=== PATIENT | male | born 1985 ===

== ENCOUNTER 2017-07-07 14:12 | Emergency (ER) | payer OTHER ==
[~2017-07-07] VITALS: Ht 167.6 cm; Wt 78.9 kg
[2017-07-07] MEDS ORDERED: LORazepam 2 MG/ML, 1ML ONE ×4 (14:37→17:08)
[2017-07-07] MEDS: LORazepam 2 MG/ML, 1ML IVPush PRN ×4 (14:42→17:10)
[2017-07-07] MEDS ORDERED: SODIUM CHLORIDE FLUSH 10ML SYR IVF ONE (15:00)
[2017-07-07] MEDS ORDERED: PLEASE ENTER HEIGHT AND WEIGHT MC SCH (15:00)
[2017-07-07 15:22] LABS: BASOPHILS # (AUTO) 0.01 x10^3/uL (0-0.1); BASOPHILS % (AUTO) 0 % (0-1); EOSINOPHILS # (AUTO) 0.02 x10^3/uL (0-0.4); EOSINOPHILS % (AUTO) 0 % (1-7); LYMPHOCYTES # (AUTO) 0.38 x10^3/uL (1-3.4); LYMPHOCYTES % (AUTO) 4 % (22-44); MD NO; MEAN CORPUSCULAR HEMOGLOBIN 35.3 pg (27.5-34.5); MEAN CORPUSCULAR HGB CONC 33.9 g/dL (33.2-36.2); MEAN CORPUSCULAR VOLUME 104.2 fL (81-97); MEAN PLATELET VOLUME 6.4 fL (7.4-10.4); MONOCYTES % (AUTO) 5 % (2-9); NEUTROPHILS # (AUTO) 9.16 x10^3/uL (1.8-6.8); NEUTROPHILS % (AUTO) 91 % (42-75); PLATELET COUNT 143 x10^3/uL (130-400); RED BLOOD COUNT 3.19 x10^6/uL (4.38-5.82); RED CELL DISTRIBUTION WIDTH 15.3 % (9.4-14.8)
[2017-07-07 15:31] LABS: ALANINE AMINOTRANSFERASE 38 U/L (12-78); ALBUMIN 2.8 g/dL (3.4-5.0); ANION GAP 9 mmol/L (5-15); CALCIUM 8.1 mg/dL (8.5-10.1); CHLORIDE 97 mmol/L (98-107)
[2017-07-07 15:34] LABS: ALKALINE PHOSPHATASE 153 U/L (45-117); BILIRUBIN,TOTAL 9.6 mg/dL (0.2-1.0); CREATININE 0.77 mg/dL (0.7-1.3); TOTAL PROTEIN 8.1 g/dL (6.4-8.2)
[2017-07-07 16:02] LABS: INTERNATIONAL NORMALIZED RATIO 1.75 (0.93-1.1)
[2017-07-07] MEDS: PLEASE ENTER ALLERGIES MC SCH ×2 (16:06→16:35)
[2017-07-07 16:44] VITALS: BP 128/80
== END 2017-07-07 18:18 | disposition home or self-care (01) ==
LOC: ED 15:34
DX: R56.9 Unspecified convulsions (principal)
CPT/HCPCS: 36415; 70450; 80053; 85025; 85610; 85730; 96374; 96376; 99285; J2060

== ENCOUNTER 2017-07-17 22:59 | Inpatient (IN) | payer OTHER ==
[~2017-07-17] VITALS: Ht 170.2 cm; Wt 68.4 kg
[2017-07-17] MEDS: ESOMEPRAZOLE SODIUM 80 MG in SODIUM CHLORIDE 0.9% 100 ML IV SCH (23:45)
[2017-07-17] MEDS ORDERED: OCTREOTIDE 500 MCG in SODIUM CHLORIDE 0.9% 249 ML IV PRN (23:45)
[2017-07-17] MEDS ORDERED: PANTOPRAZOLE 80 MG in SODIUM CHLORIDE 0.9% 50 ML IVPB ONE (23:45)
[2017-07-18] VITALS (27 sets, daily range): BP systolic 96–122; BP diastolic 37–90
[2017-07-18] MEDS ORDERED: SODIUM CHLORIDE FLUSH 10ML SYR IVF ONE
[2017-07-18] MEDS ORDERED: SODIUM CHLORIDE 0.9% 1,000ML IVBOLUS ONE
[2017-07-18] MEDS ORDERED: OCTREOTIDE 100MCG/ML, 1ML (0.1MG/ML) IV ONE
[2017-07-18 00:14] LABS: INTERNATIONAL NORMALIZED RATIO 2.01 (0.93-1.1); PROTHROMBIN TIME 20.6 Seconds (9.6-11.5)
[2017-07-18 00:16] LABS: ALANINE AMINOTRANSFERASE 17 U/L (12-78); ALBUMIN 1.8 g/dL (3.4-5.0); ANION GAP 7 mmol/L (5-15); CALCIUM 7.2 mg/dL (8.5-10.1); CHLORIDE 104 mmol/L (98-107); CREATININE 0.97 mg/dL (0.7-1.3); MEAN CORPUSCULAR HEMOGLOBIN 36.9 pg (27.5-34.5); MEAN CORPUSCULAR HGB CONC 34.4 g/dL (33.2-36.2); MEAN CORPUSCULAR VOLUME 107.2 fL (81-97); MEAN PLATELET VOLUME 6.5 fL (7.4-10.4); PLATELET COUNT 157 x10^3/uL (130-400); RED BLOOD COUNT 1.23 x10^6/uL (4.38-5.82); RED CELL DISTRIBUTION WIDTH 16.8 % (9.4-14.8)
[2017-07-18 00:18] LABS: ALKALINE PHOSPHATASE 157 U/L (45-117); BILIRUBIN,TOTAL 9.3 mg/dL (0.2-1.0); TOTAL PROTEIN 5.4 g/dL (6.4-8.2)
[2017-07-18] MEDS ORDERED: ONDANSETRON 2MG/ML, 2ML ONE (00:31)
[2017-07-18 00:41] LABS: MD YES
[2017-07-18 00:45] LABS: ANISOCYTOSIS 1+; BAND#(MANUAL) 1.54 x10^3/uL; BANDS%(MANUAL) 8 % (0-7); EOS#(MANUAL) 0.38 x10^3/uL (0.0-0.4); EOS% (MANUAL) 2 % (1-7); LYMPH#(MANUAL) 1.54 x10^3/uL (1-3.4); LYMPHS% (MANUAL) 8 % (22-44); MONOS#(MANUAL) 0.58 x10^3/uL (0.3-2.7); MONOS% (MANUAL) 3 % (2-9); MYELOCYTES# (MANUAL) 0.19 x10^3/uL (0-0); MYELOCYTES% (MANUAL) 1 % (0-0); POLYCHROMASIA 1+; SEG#(MANUAL) 14.98 x10^3/uL (1.8-6.8); SEGS% (MANUAL) 78 % (42-75)
[2017-07-18 00:46] LABS: HYPOCHROMIA 2+; MICROCYTOSIS 1+
[2017-07-18 00:47] LABS: <PLATELET ESTIMATE> ADEQUATE; <PLT MORPHOLOGY> NORMAL PLT MORPH
[2017-07-18] MEDS ORDERED: FENTANYL PF 2,500 MCG in SODIUM CHLORIDE 0.9% 200 ML IV SCH (00:58)
[2017-07-18] MEDS ORDERED: FENTANYL PF 100 MCG/2ML IV ONE ×2 (01:00→03:00)
[2017-07-18] MEDS ORDERED: ONDANSETRON 2MG/ML, 2ML IVPush ONE (01:00)
[2017-07-18] MEDS ORDERED: ETOMIDATE 20 MG/10 ML IV ONE (01:00)
[2017-07-18] MEDS ORDERED: SUCCINYLCHOLINE 20 MG/ML, 10ML IVPush ONE (01:00)
[2017-07-18] MEDS ORDERED: OCTREOTIDE 100MCG/ML, 1ML (0.1MG/ML) ONE (01:29)
[2017-07-18] MEDS ORDERED: ETOMIDATE 20 MG/10 ML ONE (01:29)
[2017-07-18] MEDS ORDERED: FENTANYL PF 100 MCG/2ML ONE ×2 (01:29→02:33)
[2017-07-18] MEDS: DEXMEDETOMIDINE 200 MCG in SODIUM CHLORIDE 0.9% 48 ML IV PRN ×2 (02:16→04:29)
[2017-07-18] MEDS ORDERED: MIDAZOLAM 1 MG/ML, 5ML ONE ×2 (02:31→12:00)
[2017-07-18] MEDS ORDERED: VECURONIUM 10 MG IVPush ONE (03:00)
[2017-07-18] MEDS ORDERED: morphine SULFATE 10 MG/ML, 1ML IVPush PRN (03:00)
[2017-07-18] MEDS ORDERED: PHYTONADIONE 10 MG/ML, 1ML IM ONE (03:00)
[2017-07-18] MEDS ORDERED: PANTOPRAZOLE 80 MG in SODIUM CHLORIDE 0.9% 100 ML IV SCH (03:00)
[2017-07-18] MEDS ORDERED: CEFTRIAXONE PMX 1GM/50ML 50 ML IV SCH (03:00)
[2017-07-18] MEDS ORDERED: ONDANSETRON 2MG/ML, 2ML IVPush PRN (03:00)
[2017-07-18] MEDS ORDERED: OCTREOTIDE 500 MCG in SODIUM CHLORIDE 0.9% 249 ML IV SCH (03:00)
[2017-07-18] MEDS ORDERED: LORazepam 2 MG/ML, 1ML IVPush PRN (03:00)
[2017-07-18] MEDS ORDERED: DEXMEDETOMIDINE 1,000 MCG in SODIUM CHLORIDE 0.9% 240 ML IV PRN (03:55)
[2017-07-18] MEDS ORDERED: LACTULOSE 20 GM/30 ML UDC NG PRN (04:00)
[2017-07-18] MEDS ORDERED: BISACODYL 10 MG SUPP PR PRN (04:00)
[2017-07-18] MEDS ORDERED: LIDOCAINE-MPF 1%, 2ML ENDO PRN (04:00)
[2017-07-18] MEDS ORDERED: FENTANYL PF 100 MCG/2ML IVPush PRN (04:00)
[2017-07-18] MEDS: ALBUTEROL/IPRATROPIUM 2.5MG/0.5MG, 3 ML INLINE SCH ×2 (04:00→08:00)
[2017-07-18] MEDS ORDERED: PHARMACY MAY ADJ FOR RENAL FX MC SCH (04:00)
[2017-07-18] MEDS ORDERED: PANTOPRAZOLE 40 MG IV IVPush ONE (04:00)
[2017-07-18] MEDS ORDERED: SENNA/DOCUSATE TABLET NG PRN (04:00)
[2017-07-18] MEDS ORDERED: AMPICILLIN/SULBACTAM 3 GM in SODIUM CHLORIDE 0.9% 100 ML IV SCH (04:00)
[2017-07-18] MEDS ORDERED: CEFTRIAXONE PMX 1GM/50ML 50 ML ONE (04:21)
[2017-07-18] MEDS ORDERED: PANTOPRAZOLE 40 MG IV ONE (04:21)
[2017-07-18] MEDS: SODIUM CHLORIDE 0.9% 1,000ML IV SCH ×2 (04:21→05:34)
[2017-07-18 04:30] LABS: ANION GAP 6 mmol/L (5-15); CALCIUM 6.9 mg/dL (8.5-10.1); CHLORIDE 103 mmol/L (98-107); CREATININE 1.03 mg/dL (0.7-1.3)
[2017-07-18] MEDS: D5%-0.45% NACL 1,000 ML IV SCH ×2 (04:40→12:43)
[2017-07-18] MEDS: PROPOFOL 100 ML IV PRN ×4 (05:21→21:49)
[2017-07-18] MEDS ORDERED: PROPOFOL 100 ML IV PRN (05:30)
[2017-07-18] MEDS: NOREPINEPHRINE 4 MG in SODIUM CHLORIDE 0.9% 246 ML IV PRN ×2 (05:32→14:05)
[2017-07-18] MEDS ORDERED: PHYTONADIONE 10 MG/ML, 1ML ONE (05:51)
[2017-07-18] MEDS: OCTREOTIDE 500 MCG in SODIUM CHLORIDE 0.9% 249 ML IV SCH ×2 (06:30→15:09)
[2017-07-18] MEDS: PANTOPRAZOLE 80 MG in SODIUM CHLORIDE 0.9% 100 ML IV SCH ×2 (06:36→15:10)
[2017-07-18] MEDS ORDERED: EPINEPHRINE SYRINGE 0.1 MG/ML, 10ML ONE (08:48)
[2017-07-18 09:00] LABS: MEAN CORPUSCULAR HGB CONC 34.9 g/dL (33.2-36.2); MEAN CORPUSCULAR VOLUME 94.8 fL (81-97); MEAN PLATELET VOLUME 6.6 fL (7.4-10.4); PLATELET COUNT 136 x10^3/uL (130-400); RED BLOOD COUNT 2.24 x10^6/uL (4.38-5.82); RED CELL DISTRIBUTION WIDTH 18.6 % (9.4-14.8)
[2017-07-18] MEDS: ESOMEPRAZOLE SODIUM 80 MG in SODIUM CHLORIDE 0.9% 100 ML IV SCH (09:45)
[2017-07-18] MEDS: POTASSIUM CHLORIDE 20 MEQ, MAGNESIUM SULFATE 2 GM, THIAMINE 100 MG, MVI ADULT 10 ML, FO... IV SCH ×2 (10:07→12:59)
[2017-07-18] MEDS ORDERED: SUCCINYLCHOLINE 20 MG/ML, 10ML ONE (12:00)
[2017-07-18] MEDS ORDERED: PROPOFOL 10 MG/ML, 100ML IV ONE (12:00)
[2017-07-18] MEDS ORDERED: VECURONIUM 10 MG ONE (12:00)
[2017-07-18] MEDS ORDERED: ALBUTEROL/IPRATROPIUM 2.5MG/0.5MG, 3 ML INLINE PRN (14:00)
[2017-07-18] MEDS: MVI ADULT IV SCH (14:15)
[2017-07-18] MEDS: THIAMINE IV SCH (14:15)
[2017-07-18] MEDS: MAGNESIUM SULFATE IV SCH (14:15)
[2017-07-18] MEDS: [UNRECOGNIZED DRUG - OTHER] IV SCH (14:15)
[2017-07-18] MEDS: FOLIC ACID IV SCH (14:15)
[2017-07-18 15:10] LABS: MEAN CORPUSCULAR HEMOGLOBIN 33.2 pg (27.5-34.5); MEAN CORPUSCULAR HGB CONC 34.6 g/dL (33.2-36.2); MEAN CORPUSCULAR VOLUME 95.9 fL (81-97); MEAN PLATELET VOLUME 6.6 fL (7.4-10.4); PLATELET COUNT 133 x10^3/uL (130-400); RED BLOOD COUNT 2.08 x10^6/uL (4.38-5.82)
[2017-07-18] MEDS: PHYTONADIONE 10 MG/ML, 1ML SQ SCH (15:10)
[2017-07-18] MEDS: CEFTRIAXONE 1,000 MG in SODIUM CHLORIDE 0.9% 50 ML IV SCH (20:58)
[2017-07-18] MEDS ORDERED: SENNOSIDES 8.8 MG/5 ML ORAL SOL NG PRN (21:00)
[2017-07-18 21:03] LABS: MEAN CORPUSCULAR HEMOGLOBIN 31.6 pg (27.5-34.5); MEAN CORPUSCULAR VOLUME 92.8 fL (81-97); MEAN PLATELET VOLUME 6.7 fL (7.4-10.4); PLATELET COUNT 122 x10^3/uL (130-400); RED BLOOD COUNT 2.58 x10^6/uL (4.38-5.82)
[2017-07-19] MEDS: PROPOFOL 100 ML IV PRN ×2 (00:55→05:09)
[2017-07-19] MEDS: D5%-0.45% NACL 1,000 ML IV SCH ×3 (00:55→23:06)
[2017-07-19] MEDS: PANTOPRAZOLE 80 MG in SODIUM CHLORIDE 0.9% 100 ML IV SCH ×3 (00:56→20:50)
[2017-07-19] MEDS: OCTREOTIDE 500 MCG in SODIUM CHLORIDE 0.9% 249 ML IV SCH ×3 (03:06→23:48)
[2017-07-19 03:09] LABS: MEAN CORPUSCULAR HEMOGLOBIN 32.2 pg (27.5-34.5); MEAN CORPUSCULAR HGB CONC 34.4 g/dL (33.2-36.2); MEAN CORPUSCULAR VOLUME 93.6 fL (81-97); MEAN PLATELET VOLUME 6.5 fL (7.4-10.4); PLATELET COUNT 116 x10^3/uL (130-400); RED CELL DISTRIBUTION WIDTH 19.2 % (9.4-14.8)
[2017-07-19 03:27] LABS: MD YES
[2017-07-19 03:30] LABS: BAND#(MANUAL) 0.12 x10^3/uL; BANDS%(MANUAL) 1 % (0-7); BASOS#(MANUAL) 0.12 x10^3/uL (0-0.1); BASOS% (MANUAL) 1 % (0-1); EOS#(MANUAL) 0.12 x10^3/uL (0.0-0.4); EOS% (MANUAL) 1 % (1-7); LYMPH#(MANUAL) 0.98 x10^3/uL (1-3.4); LYMPHS% (MANUAL) 8 % (22-44); MONOS#(MANUAL) 0.85 x10^3/uL (0.3-2.7); MONOS% (MANUAL) 7 % (2-9); SEGS% (MANUAL) 82 % (42-75)
[2017-07-19 03:32] LABS: ANISOCYTOSIS 1+; POLYCHROMASIA 1+
[2017-07-19 03:33] LABS: <PLATELET ESTIMATE> DECREASED; <PLT MORPHOLOGY> NORMAL PLT MORPH
[2017-07-19 04:00] VITALS: BP 98/51
[2017-07-19 04:34] LABS: MEAN CORPUSCULAR HEMOGLOBIN 32.1 pg (27.5-34.5); MEAN CORPUSCULAR HGB CONC 34.5 g/dL (33.2-36.2); MEAN CORPUSCULAR VOLUME 92.9 fL (81-97); MEAN PLATELET VOLUME 6.7 fL (7.4-10.4); PLATELET COUNT 119 x10^3/uL (130-400); RED BLOOD COUNT 2.55 x10^6/uL (4.38-5.82); RED CELL DISTRIBUTION WIDTH 19.2 % (9.4-14.8)
[2017-07-19 04:43] LABS: ALANINE AMINOTRANSFERASE 16 U/L (12-78); ANION GAP 6 mmol/L (5-15); CALCIUM 6.5 mg/dL (8.5-10.1); CHLORIDE 108 mmol/L (98-107)
[2017-07-19 04:46] LABS: ALKALINE PHOSPHATASE 108 U/L (45-117); BILIRUBIN,TOTAL 12.2 mg/dL (0.2-1.0); CREATININE 0.84 mg/dL (0.7-1.3); TOTAL PROTEIN 5.2 g/dL (6.4-8.2)
[2017-07-19] MEDS ORDERED: LACTULOSE 20 GM/30 ML UDC PO SCH (05:30)
[2017-07-19] MEDS ORDERED: NOREPINEPHRINE 4 MG in SODIUM CHLORIDE 0.9% 246 ML IV PRN (05:30)
[2017-07-19 05:41] LABS: MD YES
[2017-07-19 05:45] LABS: BAND#(MANUAL) 0.35 x10^3/uL; BANDS%(MANUAL) 3 % (0-7); EOS#(MANUAL) 0.35 x10^3/uL (0.0-0.4); EOS% (MANUAL) 3 % (1-7); LYMPH#(MANUAL) 0.58 x10^3/uL (1-3.4); LYMPHS% (MANUAL) 5 % (22-44); MONOS#(MANUAL) 0.46 x10^3/uL (0.3-2.7); MONOS% (MANUAL) 4 % (2-9); SEG#(MANUAL) 9.78 x10^3/uL (1.8-6.8); SEGS% (MANUAL) 85 % (42-75)
[2017-07-19 05:47] LABS: POLYCHROMASIA 1+
[2017-07-19 05:48] LABS: ANISOCYTOSIS 1+
[2017-07-19 05:50] LABS: <PLATELET ESTIMATE> DECREASED; <PLT MORPHOLOGY> NORMAL PLT MORPH
[2017-07-19] MEDS: LACTULOSE 20 GM/30 ML UDC NG SCH ×3 (07:56→21:28)
[2017-07-19] MEDS: PHYTONADIONE 10 MG/ML, 1ML SQ SCH (07:56)
[2017-07-19 11:19] LABS: MEAN CORPUSCULAR HEMOGLOBIN 32.2 pg (27.5-34.5); MEAN CORPUSCULAR HGB CONC 34.6 g/dL (33.2-36.2); MEAN CORPUSCULAR VOLUME 93.1 fL (81-97); MEAN PLATELET VOLUME 6.5 fL (7.4-10.4); PLATELET COUNT 133 x10^3/uL (130-400); RED BLOOD COUNT 2.74 x10^6/uL (4.38-5.82); RED CELL DISTRIBUTION WIDTH 19.5 % (9.4-14.8)
[2017-07-19] MEDS: MVI ADULT IV SCH (11:50)
[2017-07-19] MEDS: THIAMINE IV SCH (11:50)
[2017-07-19] MEDS: FOLIC ACID IV SCH (11:50)
[2017-07-19] MEDS: MAGNESIUM SULFATE IV SCH (11:50)
[2017-07-19] MEDS: [UNRECOGNIZED DRUG - OTHER] IV SCH (11:50)
[2017-07-19 15:40] LABS: MEAN CORPUSCULAR HEMOGLOBIN 32.1 pg (27.5-34.5); MEAN CORPUSCULAR HGB CONC 34.4 g/dL (33.2-36.2); MEAN CORPUSCULAR VOLUME 93.5 fL (81-97); MEAN PLATELET VOLUME 6.5 fL (7.4-10.4); PLATELET COUNT 132 x10^3/uL (130-400); RED BLOOD COUNT 2.72 x10^6/uL (4.38-5.82); RED CELL DISTRIBUTION WIDTH 19.4 % (9.4-14.8)
[2017-07-19] MEDS: CEFTRIAXONE 1,000 MG in SODIUM CHLORIDE 0.9% 50 ML IV SCH (19:27)
[2017-07-19 21:22] LABS: MEAN CORPUSCULAR HEMOGLOBIN 32.1 pg (27.5-34.5); MEAN CORPUSCULAR HGB CONC 34.3 g/dL (33.2-36.2); MEAN CORPUSCULAR VOLUME 93.8 fL (81-97); MEAN PLATELET VOLUME 6.5 fL (7.4-10.4); PLATELET COUNT 131 x10^3/uL (130-400); RED BLOOD COUNT 2.68 x10^6/uL (4.38-5.82); RED CELL DISTRIBUTION WIDTH 19.6 % (9.4-14.8)
[2017-07-20 03:25] LABS: ANION GAP 5 mmol/L (5-15); CALCIUM 7.1 mg/dL (8.5-10.1); CHLORIDE 108 mmol/L (98-107); CREATININE 0.64 mg/dL (0.7-1.3)
[2017-07-20 03:38] LABS: MEAN CORPUSCULAR HEMOGLOBIN 32.5 pg (27.5-34.5); MEAN CORPUSCULAR HGB CONC 34.3 g/dL (33.2-36.2); MEAN PLATELET VOLUME 6.3 fL (7.4-10.4); PLATELET COUNT 124 x10^3/uL (130-400); RED BLOOD COUNT 2.61 x10^6/uL (4.38-5.82)
[2017-07-20 03:58] LABS: MD YES
[2017-07-20 04:00] VITALS: BP 114/59
[2017-07-20 04:00] LABS: ANISOCYTOSIS 1+; BANDS%(MANUAL) 3 % (0-7); EOS#(MANUAL) 0.13 x10^3/uL (0.0-0.4); EOS% (MANUAL) 1 % (1-7); LYMPH#(MANUAL) 0.67 x10^3/uL (1-3.4); LYMPHS% (MANUAL) 5 % (22-44); METAMYELOCYTES# (MANUAL) 0.13 x10^3/uL (0-0); METAMYELOCYTES% (MANUAL) 1 % (0-1); MONOS#(MANUAL) 1.33 x10^3/uL (0.3-2.7); MONOS% (MANUAL) 10 % (2-9); POLYCHROMASIA 1+; SEG#(MANUAL) 10.64 x10^3/uL (1.8-6.8); SEGS% (MANUAL) 80 % (42-75)
[2017-07-20 04:01] LABS: SPHEROCYTES 1+
[2017-07-20 04:02] LABS: <PLATELET ESTIMATE> ADEQUATE; LARGE PLATELETS 1+
[2017-07-20] MEDS: PANTOPRAZOLE 80 MG in SODIUM CHLORIDE 0.9% 100 ML IV SCH ×3 (05:24→23:11)
[2017-07-20] MEDS: D5%-0.45% NACL 1,000 ML IV SCH (08:00)
[2017-07-20] MEDS: LACTULOSE 20 GM/30 ML UDC NG SCH ×2 (09:25→21:00)
[2017-07-20] MEDS: PHYTONADIONE 10 MG/ML, 1ML SQ SCH (09:25)
[2017-07-20] MEDS ORDERED: PNEUMOCOCCAL 23 VACCINE IM-VACC ONE (10:30)
[2017-07-20] MEDS ORDERED: FLU VACC QS2017-18 (36MOS+) UP/PF 0.5 ML IM-VACC ONE (10:30)
[2017-07-20] MEDS: OCTREOTIDE 500 MCG in SODIUM CHLORIDE 0.9% 249 ML IV SCH ×2 (13:19→23:11)
[2017-07-20 17:25] VITALS: BP 129/73
[2017-07-20] MEDS: CEFTRIAXONE 1,000 MG in SODIUM CHLORIDE 0.9% 50 ML IV SCH (19:37)
[2017-07-20] MEDS: ACETAMINOPHEN 325 MG TABLET PO PRN (19:47)
[2017-07-20 19:50] VITALS: BP 141/83
[2017-07-21 02:26] VITALS: BP 122/67
[2017-07-21 07:03] VITALS: BP 114/62
[2017-07-21] MEDS: PANTOPRAZOLE 80 MG in SODIUM CHLORIDE 0.9% 100 ML IV SCH ×2 (09:23→22:28)
[2017-07-21] MEDS: OCTREOTIDE 500 MCG in SODIUM CHLORIDE 0.9% 249 ML IV SCH ×2 (09:24→22:27)
[2017-07-21] MEDS: LACTULOSE 20 GM/30 ML UDC NG SCH ×3 (09:24→19:52)
[2017-07-21] MEDS: PHYTONADIONE 10 MG/ML, 1ML SQ SCH (09:24)
[2017-07-21 11:02] LABS: ALANINE AMINOTRANSFERASE 18 U/L (12-78); ALBUMIN 1.9 g/dL (3.4-5.0); ANION GAP 8 mmol/L (5-15); CALCIUM 7.2 mg/dL (8.5-10.1); CHLORIDE 103 mmol/L (98-107); CREATININE 0.59 mg/dL (0.7-1.3)
[2017-07-21 11:05] LABS: ALKALINE PHOSPHATASE 131 U/L (45-117); TOTAL PROTEIN 5.9 g/dL (6.4-8.2)
[2017-07-21 11:39] LABS: MEAN CORPUSCULAR HEMOGLOBIN 32.3 pg (27.5-34.5); MEAN CORPUSCULAR VOLUME 95.2 fL (81-97); MEAN PLATELET VOLUME 6.5 fL (7.4-10.4); PLATELET COUNT 149 x10^3/uL (130-400); RED BLOOD COUNT 3.09 x10^6/uL (4.38-5.82)
[2017-07-21 11:40] LABS: MD YES
[2017-07-21 11:55] LABS: ANISOCYTOSIS 1+; BAND#(MANUAL) 0.86 x10^3/uL; BANDS%(MANUAL) 6 % (0-7); EOS#(MANUAL) 0.14 x10^3/uL (0.0-0.4); EOS% (MANUAL) 1 % (1-7); LYMPH#(MANUAL) 0.43 x10^3/uL (1-3.4); LYMPHS% (MANUAL) 3 % (22-44); METAMYELOCYTES# (MANUAL) 0.43 x10^3/uL (0-0); METAMYELOCYTES% (MANUAL) 3 % (0-1); MONOS#(MANUAL) 0.29 x10^3/uL (0.3-2.7); MONOS% (MANUAL) 2 % (2-9); MYELOCYTES# (MANUAL) 0.14 x10^3/uL (0-0); MYELOCYTES% (MANUAL) 1 % (0-0); OVALOCYTES 1+; POLYCHROMASIA 1+; SEG#(MANUAL) 12.01 x10^3/uL (1.8-6.8); SEGS% (MANUAL) 84 % (42-75)
[2017-07-21 11:56] LABS: <PLATELET ESTIMATE> ADEQUATE; SPHEROCYTES 1+
[2017-07-21 11:57] LABS: <PLT MORPHOLOGY> NORMAL PLT MORPH
[2017-07-21] MEDS ORDERED: LIDOCAINE 1%, 20ML ONE (12:00)
[2017-07-21] MEDS ORDERED: FENTANYL PF 100 MCG/2ML ONE (12:17)
[2017-07-21] MEDS ORDERED: MIDAZOLAM 1 MG/ML, 2ML ONE ×2 (12:17)
[2017-07-21] MEDS ORDERED: FLUMAZENIL 0.1 MG/1 ML, 5ML ONE (12:18)
[2017-07-21] MEDS ORDERED: NALOXONE 1 MG/ML, 2ML ONE (12:18)
[2017-07-21 14:45] VITALS: BP 132/73
[2017-07-21] MEDS ORDERED: VISIPAQUE 270 MG/ML, 150ML BOTTLE ONE (15:32)
[2017-07-21 19:26] VITALS: BP 150/84
[2017-07-21] MEDS: CEFTRIAXONE 1,000 MG in SODIUM CHLORIDE 0.9% 50 ML IV SCH (19:57)
[2017-07-22 01:16] VITALS: BP 122/70
[2017-07-22 04:58] LABS: MEAN CORPUSCULAR HEMOGLOBIN 33.6 pg (27.5-34.5); MEAN CORPUSCULAR HGB CONC 35.3 g/dL (33.2-36.2); MEAN CORPUSCULAR VOLUME 95.2 fL (81-97); MEAN PLATELET VOLUME 6.5 fL (7.4-10.4); PLATELET COUNT 123 x10^3/uL (130-400); RED BLOOD COUNT 2.63 x10^6/uL (4.38-5.82); RED CELL DISTRIBUTION WIDTH 20.7 % (9.4-14.8)
[2017-07-22 05:11] LABS: ALANINE AMINOTRANSFERASE 17 U/L (12-78); ALBUMIN 1.7 g/dL (3.4-5.0); ANION GAP 6 mmol/L (5-15); CHLORIDE 101 mmol/L (98-107); CREATININE 0.62 mg/dL (0.7-1.3)
[2017-07-22 05:13] LABS: ALKALINE PHOSPHATASE 126 U/L (45-117); BILIRUBIN,TOTAL 12.7 mg/dL (0.2-1.0); TOTAL PROTEIN 5.5 g/dL (6.4-8.2)
[2017-07-22 05:45] LABS: MD YES
[2017-07-22 05:48] LABS: ANISOCYTOSIS 1+; BAND#(MANUAL) 1.59 x10^3/uL; BANDS%(MANUAL) 9 % (0-7); EOS#(MANUAL) 0.35 x10^3/uL (0.0-0.4); EOS% (MANUAL) 2 % (1-7); LYMPH#(MANUAL) 0.71 x10^3/uL (1-3.4); LYMPHS% (MANUAL) 4 % (22-44); METAMYELOCYTES# (MANUAL) 0.53 x10^3/uL (0-0); METAMYELOCYTES% (MANUAL) 3 % (0-1); MONOS#(MANUAL) 0.53 x10^3/uL (0.3-2.7); MONOS% (MANUAL) 3 % (2-9); MYELOCYTES# (MANUAL) 0.18 x10^3/uL (0-0); MYELOCYTES% (MANUAL) 1 % (0-0); POLYCHROMASIA 1+; SEG#(MANUAL) 13.81 x10^3/uL (1.8-6.8); SEGS% (MANUAL) 78 % (42-75)
[2017-07-22 05:52] LABS: <PLATELET ESTIMATE> ADEQUATE; <PLT MORPHOLOGY> NORMAL PLT MORPH; ECHINOCYTES 1+
[2017-07-22 05:53] LABS: SPHEROCYTES 1+
[2017-07-22 07:55] VITALS: BP 134/71
[2017-07-22] MEDS: LACTULOSE 20 GM/30 ML UDC NG SCH ×2 (09:08→20:16)
[2017-07-22] MEDS: PANTOPRAZOLE 80 MG in SODIUM CHLORIDE 0.9% 100 ML IV SCH (09:08)
[2017-07-22] MEDS: OCTREOTIDE 500 MCG in SODIUM CHLORIDE 0.9% 249 ML IV SCH (09:08)
[2017-07-22] MEDS: PHYTONADIONE 10 MG/ML, 1ML SQ SCH (09:08)
[2017-07-22 14:00] VITALS: BP 131/73
[2017-07-22] MEDS: OMEPRAZOLE 20 MG CAPSULE.DR PO SCH (19:55)
[2017-07-22 20:04] VITALS: BP 127/75
[2017-07-22] MEDS: CEFTRIAXONE 1,000 MG in SODIUM CHLORIDE 0.9% 50 ML IV SCH (20:15)
[2017-07-22] MEDS: ACETAMINOPHEN 325 MG TABLET PO PRN (20:16)
[2017-07-23 00:48] VITALS: BP 129/73
[2017-07-23 05:35] LABS: CHLORIDE 100 mmol/L (98-107)
[2017-07-23 05:45] LABS: MEAN CORPUSCULAR HEMOGLOBIN 33.6 pg (27.5-34.5); MEAN CORPUSCULAR HGB CONC 34.8 g/dL (33.2-36.2); MEAN CORPUSCULAR VOLUME 96.4 fL (81-97); MEAN PLATELET VOLUME 6.5 fL (7.4-10.4); PLATELET COUNT 123 x10^3/uL (130-400); RED BLOOD COUNT 2.65 x10^6/uL (4.38-5.82); RED CELL DISTRIBUTION WIDTH 23.9 % (9.4-14.8)
[2017-07-23 05:47] LABS: ALANINE AMINOTRANSFERASE 16 U/L (12-78); ALBUMIN 1.8 g/dL (3.4-5.0); ALKALINE PHOSPHATASE 140 U/L (45-117); ANION GAP 8 mmol/L (5-15); CALCIUM 7.3 mg/dL (8.5-10.1); CREATININE 0.61 mg/dL (0.7-1.3); TOTAL PROTEIN 5.7 g/dL (6.4-8.2)
[2017-07-23 06:08] LABS: BILIRUBIN,TOTAL 16.5 mg/dL (0.2-1.0)
[2017-07-23 06:45] LABS: MD YES
[2017-07-23 06:48] LABS: ANISOCYTOSIS 1+; BANDS%(MANUAL) 8 % (0-7); EOS#(MANUAL) 0.56 x10^3/uL (0.0-0.4); EOS% (MANUAL) 3 % (1-7); LYMPH#(MANUAL) 1.31 x10^3/uL (1-3.4); LYMPHS% (MANUAL) 7 % (22-44); MONOS#(MANUAL) 0.75 x10^3/uL (0.3-2.7); MONOS% (MANUAL) 4 % (2-9); NRBC % (MANUAL) 1 % (0-1); REACTIVE LYMPHS # (MANUAL) 0.19 x10^3/uL (0-0); REACTIVE LYMPHS % (MANUAL) 1 % (0-0); SEGS% (MANUAL) 77 % (42-75)
[2017-07-23 06:49] LABS: POLYCHROMASIA 1+
[2017-07-23 06:50] LABS: ECHINOCYTES 1+; SPHEROCYTES 1+
[2017-07-23 06:51] LABS: <PLATELET ESTIMATE> DECREASED; <PLT MORPHOLOGY> NORMAL PLT MORPH
[2017-07-23 08:46] VITALS: BP 133/71
[2017-07-23] MEDS: LACTULOSE 20 GM/30 ML UDC NG SCH ×2 (09:00→21:00)
[2017-07-23] MEDS: OMEPRAZOLE 20 MG CAPSULE.DR PO SCH ×2 (09:46→18:03)
[2017-07-23 11:07] LABS: BILIRUBIN, DIRECT 9.4 mg/dL (0.1-0.2)
[2017-07-23 14:19] VITALS: BP 131/81
[2017-07-23 19:30] VITALS: BP 126/69
[2017-07-23] MEDS: CEFTRIAXONE 1,000 MG in SODIUM CHLORIDE 0.9% 50 ML IV SCH (20:04)
[2017-07-24 02:07] VITALS: BP 136/73
[2017-07-24 05:07] LABS: ALANINE AMINOTRANSFERASE 22 U/L (12-78); ALBUMIN 2.1 g/dL (3.4-5.0); ANION GAP 7 mmol/L (5-15); CALCIUM 7.2 mg/dL (8.5-10.1); CHLORIDE 99 mmol/L (98-107); CREATININE 0.71 mg/dL (0.7-1.3)
[2017-07-24 05:09] LABS: ALKALINE PHOSPHATASE 162 U/L (45-117)
[2017-07-24 05:12] LABS: TOTAL PROTEIN 6.5 g/dL (6.4-8.2)
[2017-07-24 05:13] LABS: BILIRUBIN,TOTAL 22.4 mg/dL (0.2-1.0)
[2017-07-24 05:59] LABS: MEAN CORPUSCULAR HEMOGLOBIN 34.3 pg (27.5-34.5); MEAN CORPUSCULAR HGB CONC 35.2 g/dL (33.2-36.2); MEAN CORPUSCULAR VOLUME 97.4 fL (81-97); MEAN PLATELET VOLUME 7.6 fL (7.4-10.4); PLATELET COUNT 125 x10^3/uL (130-400); RED BLOOD COUNT 2.67 x10^6/uL (4.38-5.82); RED CELL DISTRIBUTION WIDTH 24.6 % (9.4-14.8)
[2017-07-24 06:01] LABS: MD YES
[2017-07-24 06:03] LABS: BAND#(MANUAL) 1.79 x10^3/uL; BANDS%(MANUAL) 8 % (0-7); EOS#(MANUAL) 0.22 x10^3/uL (0.0-0.4); EOS% (MANUAL) 1 % (1-7); LYMPH#(MANUAL) 0.22 x10^3/uL (1-3.4); LYMPHS% (MANUAL) 1 % (22-44); METAMYELOCYTES# (MANUAL) 0.67 x10^3/uL (0-0); METAMYELOCYTES% (MANUAL) 3 % (0-1); SEG#(MANUAL) 19.49 x10^3/uL (1.8-6.8); SEGS% (MANUAL) 87 % (42-75)
[2017-07-24 06:04] LABS: <PLATELET ESTIMATE> DECREASED; <PLT MORPHOLOGY> NORMAL PLT MORPH; ANISOCYTOSIS 1+; ECHINOCYTES 1+; POLYCHROMASIA 1+; SPHEROCYTES 1+
[2017-07-24 07:21] VITALS: BP 129/78
[2017-07-24] MEDS: OMEPRAZOLE 20 MG CAPSULE.DR PO SCH ×2 (07:54→16:21)
[2017-07-24] MEDS: LACTULOSE 20 GM/30 ML UDC NG SCH ×2 (07:54→20:32)
[2017-07-24] MEDS ORDERED: MAGNESIUM SULFATE PMX 4GM/100M 100 ML IV ONE (10:30)
[2017-07-24 14:31] VITALS: BP 120/70
[2017-07-24 16:21] LABS: MICROSCOPIC INDICATED
[2017-07-24 18:59] VITALS: BP 133/76
[2017-07-24] MEDS: ACETAMINOPHEN 325 MG TABLET PO PRN (20:32)
[2017-07-24] MEDS: CEFTRIAXONE 1,000 MG in SODIUM CHLORIDE 0.9% 50 ML IV SCH (20:32)
[2017-07-25 02:53] VITALS: BP 116/67
[2017-07-25 05:29] LABS: ALBUMIN 1.8 g/dL (3.4-5.0); ANION GAP 8 mmol/L (5-15); CALCIUM 6.9 mg/dL (8.5-10.1); CHLORIDE 101 mmol/L (98-107)
[2017-07-25 05:33] LABS: ALANINE AMINOTRANSFERASE 15 U/L (12-78); ALKALINE PHOSPHATASE 148 U/L (45-117)
[2017-07-25 05:36] LABS: CREATININE 0.68 mg/dL (0.7-1.3)
[2017-07-25 05:37] LABS: TOTAL PROTEIN 5.7 g/dL (6.4-8.2)
[2017-07-25 05:38] LABS: BILIRUBIN,TOTAL 22.1 mg/dL (0.2-1.0)
[2017-07-25 07:58] VITALS: BP 123/72
[2017-07-25] MEDS: OMEPRAZOLE 20 MG CAPSULE.DR PO SCH ×2 (08:07→16:26)
[2017-07-25] MEDS: ACETAMINOPHEN 325 MG TABLET PO PRN ×2 (08:07→18:21)
[2017-07-25] MEDS: LACTULOSE 20 GM/30 ML UDC NG SCH ×2 (10:01→20:00)
[2017-07-25 13:45] VITALS: BP 118/70
[2017-07-25 19:30] VITALS: BP 122/69
[2017-07-25] MEDS: CEFTRIAXONE 1,000 MG in SODIUM CHLORIDE 0.9% 50 ML IV SCH (20:00)
[2017-07-25 23:26] VITALS: BP 83/49
[2017-07-25 23:30] VITALS: BP 77/38
[2017-07-25] MEDS ORDERED: PANTOPRAZOLE 40 MG IV IVPush SCH (23:30)
[2017-07-25] MEDS ORDERED: SODIUM CHLORIDE 0.9% 1,000ML IVBOLUS ONE (23:30)
[2017-07-26] VITALS (21 sets, daily range): BP systolic 47–101; BP diastolic 21–78
[2017-07-26] MEDS ORDERED: OCTREOTIDE 500 MCG in SODIUM CHLORIDE 0.9% 249 ML IV SCH
[2017-07-26] MEDS ORDERED: PANTOPRAZOLE 80 MG in SODIUM CHLORIDE 0.9% 100 ML IV SCH
[2017-07-26] MEDS ORDERED: NOREPINEPHRINE 1 MG/ML, 4ML ONE (00:12)
[2017-07-26 00:15] LABS: MEAN CORPUSCULAR HEMOGLOBIN 34.9 pg (27.5-34.5); MEAN CORPUSCULAR HGB CONC 34.6 g/dL (33.2-36.2); PLATELET COUNT 123 x10^3/uL (130-400); RED BLOOD COUNT 1.55 x10^6/uL (4.38-5.82); RED CELL DISTRIBUTION WIDTH 26.2 % (9.4-14.8)
[2017-07-26 00:17] LABS: INTERNATIONAL NORMALIZED RATIO 2.79 (0.93-1.1); MD YES; PROTHROMBIN TIME 28.4 Seconds (9.6-11.5)
[2017-07-26 00:19] LABS: <PLATELET ESTIMATE> DECREASED; <PLT MORPHOLOGY> NORMAL PLT MORPH; ANISOCYTOSIS 1+; BANDS%(MANUAL) 6 % (0-7); ECHINOCYTES 1+; EOS% (MANUAL) 3 % (1-7); LYMPH#(MANUAL) 1.06 x10^3/uL (1-3.4); LYMPHS% (MANUAL) 4 % (22-44); MONOS% (MANUAL) 3 % (2-9); POLYCHROMASIA 1+; SEG#(MANUAL) 22.34 x10^3/uL (1.8-6.8); SEGS% (MANUAL) 84 % (42-75); SPHEROCYTES 1+
[2017-07-26] MEDS ORDERED: PROPOFOL 100 ML IV PRN ×2 (01:00→01:23)
[2017-07-26] MEDS ORDERED: VASOPRESSIN 100 UNIT in SODIUM CHLORIDE 0.9% 495 ML IV PRN (01:00)
[2017-07-26] MEDS ORDERED: LIDOCAINE-MPF 1%, 2ML ENDO PRN (01:30)
[2017-07-26] MEDS: NOREPINEPHRINE 4 MG in SODIUM CHLORIDE 0.9% 246 ML IV PRN ×2 (02:27)
[2017-07-26] MEDS ORDERED: SODIUM CHLORIDE 0.9% 1,000ML IVBOLUS ONE (02:30)
[2017-07-26] MEDS ORDERED: SODIUM CHLORIDE 0.9% 100 ML IV SCH (02:30)
[2017-07-26] MEDS ORDERED: PHENYLEPHRINE 20 MG in SODIUM CHLORIDE 0.9% 248 ML IV PRN (03:00)
[2017-07-26] MEDS ORDERED: SODIUM BICARB 8.4%, 50ML SYRINGE ONE ×3 (03:09→08:00)
[2017-07-26] MEDS ORDERED: SODIUM BICARB 8.4%, 50ML SYRINGE IVPush ONE ×2 (03:30)
[2017-07-26] MEDS: NOREPINEPHRINE 8 MG in SODIUM CHLORIDE 0.9% 242 ML IV PRN ×3 (03:44→04:05)
[2017-07-26] MEDS ORDERED: PHENYLEPHRINE 80 MG in SODIUM CHLORIDE 0.9% 242 ML IV PRN (03:54)
[2017-07-26] MEDS ORDERED: DEXTROSE 5% ONE (05:34)
[2017-07-26] MEDS ORDERED: CODE BLUE RESPONSE XX ONE (05:34)
[2017-07-26] MEDS ORDERED: EPINEPHRINE SYRINGE 0.1 MG/ML, 10ML ONE ×2 (05:34→08:00)
[2017-07-26] MEDS ORDERED: SODIUM CHLORIDE 0.9%, 250ML ONE (05:34)
[2017-07-26] MEDS ORDERED: EPINEPHRINE 1 MG/ML, 1ML ONE (05:34)
[2017-07-26] MEDS ORDERED: CALCIUM CHLORIDE 10%, 10ML SYR ONE (05:34)
[2017-07-26 05:35] LABS: CHLORIDE 110 mmol/L (98-107)
[2017-07-26 05:37] LABS: MEAN CORPUSCULAR HEMOGLOBIN 27.5 pg (27.5-34.5); MEAN CORPUSCULAR HGB CONC 32.4 g/dL (33.2-36.2); MEAN CORPUSCULAR VOLUME 84.8 fL (81-97); RED BLOOD COUNT 1.16 x10^6/uL (4.38-5.82); RED CELL DISTRIBUTION WIDTH 30.1 % (9.4-14.8)
[2017-07-26 05:51] LABS: ALANINE AMINOTRANSFERASE 23 U/L (12-78); ALBUMIN 0.7 g/dL (3.4-5.0); ALKALINE PHOSPHATASE 62 U/L (45-117); ANION GAP 25 mmol/L (5-15); BILIRUBIN,TOTAL 7.8 mg/dL (0.2-1.0); CALCIUM 7.5 mg/dL (8.5-10.1); CREATININE 1.21 mg/dL (0.7-1.3); TOTAL PROTEIN 2.2 g/dL (6.4-8.2)
[2017-07-26] MEDS ORDERED: DEXTROSE 50%, 50ML SYRINGE ONE (05:58)
[2017-07-26 05:59] LABS: MD YES; MEAN PLATELET VOLUME 7.7 fL (7.4-10.4); PLATELET COUNT 69 x10^3/uL (130-400)
[2017-07-26 06:01] LABS: BANDS%(MANUAL) 15 % (0-7); LYMPH#(MANUAL) 3.72 x10^3/uL (1-3.4); LYMPHS% (MANUAL) 9 % (22-44); METAMYELOCYTES# (MANUAL) 2.48 x10^3/uL (0-0); METAMYELOCYTES% (MANUAL) 6 % (0-1); MONOS#(MANUAL) 1.24 x10^3/uL (0.3-2.7); MONOS% (MANUAL) 3 % (2-9); MYELOCYTES# (MANUAL) 0.83 x10^3/uL (0-0); MYELOCYTES% (MANUAL) 2 % (0-0); NRBC % (MANUAL) 18 % (0-1); SEG#(MANUAL) 26.85 x10^3/uL (1.8-6.8); SEGS% (MANUAL) 65 % (42-75)
[2017-07-26 06:02] LABS: ANISOCYTOSIS 2+; ECHINOCYTES 1+; MICROCYTOSIS 1+; POLYCHROMASIA 2+
[2017-07-26 06:04] LABS: <PLATELET ESTIMATE> DECREASED; LARGE PLATELETS 1+
[2017-07-26] MEDS ORDERED: PHYTONADIONE 10 MG in SODIUM CHLORIDE 0.9% 50 ML IV ONE (06:30)
[2017-07-26] MEDS ORDERED: EPINEPHRINE 2 MG in SODIUM CHLORIDE 0.9% 248 ML IV PRN (07:30)
[2017-07-26] MEDS ORDERED: PHENYLEPHRINE 10 MG/ML ONE (07:44)
[2017-07-26] MEDS ORDERED: SUCCINYLCHOLINE 20 MG/ML, 10ML ONE (08:00)
[2017-07-26] MEDS ORDERED: MIDAZOLAM 1 MG/ML, 5ML ONE (08:00)
[2017-07-26] MEDS ORDERED: PROPOFOL 10 MG/ML, 100ML IV ONE (08:00)
[2017-07-26] MEDS ORDERED: ETOMIDATE 20 MG/10 ML ONE (08:00)
[2017-07-26] MEDS ORDERED: LORazepam 2 MG/ML, 1ML IV PRN (09:00)
[2017-07-26] MEDS ORDERED: LORazepam 2 MG/ML, 1ML IV ONE (09:00)
[2017-07-26] MEDS ORDERED: morphine SULFATE 10 MG/ML, 1ML IV PRN (09:00)
[2017-07-26] MEDS ORDERED: ATROPINE OPHTH SOLN 1%, 2ML PO PRN (09:00)
[2017-07-26] MEDS ORDERED: morphine SULFATE 10 MG/ML, 1ML IV ONE (09:00)
[2017-07-26] MEDS ORDERED: SODIUM BICARBONATE 8.4% 150 MEQ in DEXTROSE 5% 1,000 ML IV SCH (09:30)
== END 2017-07-26 09:09 | disposition expired | DRG 405 ==
LOC: ED 23:59 → EDIP 07-18 01:16 → CCU 07-18 12:13 → 3NW 07-20 17:23 → 3NE 07-22 22:22 → CCU 07-26 00:06
PROVIDERS: ADMIT Internal Medicine; ATTEND Internal Medicine
PROC: 02HV33Z Insertion of Infusion Device into Superior Vena Cava, Percutaneous Approach (ICD-10-PCS; 2017-07-17)
PROC: B548ZZA Ultrasonography of Superior Vena Cava, Guidance (ICD-10-PCS; 2017-07-17)
PROC: 5A1945Z Respiratory Ventilation, 24-96 Consecutive Hours (ICD-10-PCS; 2017-07-18)
PROC: 3E0G8GC Introduction of Other Therapeutic Substance into Upper GI, Via Natural or Artificial Opening Endoscopic (ICD-10-PCS; 2017-07-18)
PROC: 30233L1 Transfusion of Nonautologous Fresh Plasma into Peripheral Vein, Percutaneous Approach (ICD-10-PCS; 2017-07-18)
PROC: 30233N1 Transfusion of Nonautologous Red Blood Cells into Peripheral Vein, Percutaneous Approach (ICD-10-PCS; 2017-07-18)
PROC: 30233K1 Transfusion of Nonautologous Frozen Plasma into Peripheral Vein, Percutaneous Approach (ICD-10-PCS; 2017-07-18)
PROC: 0BH17EZ Insertion of Endotracheal Airway into Trachea, Via Natural or Artificial Opening (ICD-10-PCS; 2017-07-18)
PROC: 0W3P8ZZ Control Bleeding in Gastrointestinal Tract, Via Natural or Artificial Opening Endoscopic (ICD-10-PCS; 2017-07-18)
PROC: 06L38CZ Occlusion of Esophageal Vein with Extraluminal Device, Via Natural or Artificial Opening Endoscopic (ICD-10-PCS; principal; 2017-07-18 02:10)
PROC: 06183J4 Bypass Portal Vein to Hepatic Vein with Synthetic Substitute, Percutaneous Approach (ICD-10-PCS; 2017-07-21)
PROC: 06WY3DZ Revision of Intraluminal Device in Lower Vein, Percutaneous Approach (ICD-10-PCS; 2017-07-21)
PROC: 5A1935Z Respiratory Ventilation, Less than 24 Consecutive Hours (ICD-10-PCS; 2017-07-26)
PROC: 0DL58DZ Occlusion of Esophagus with Intraluminal Device, Via Natural or Artificial Opening Endoscopic (ICD-10-PCS; 2017-07-26)
DX: K70.30 Alcoholic cirrhosis of liver without ascites (principal); E43 Unspecified severe protein-calorie malnutrition; J96.00 Acute respiratory failure, unspecified whether with hypoxia or hypercapnia; R57.8 Other shock; J69.0 Pneumonitis due to inhalation of food and vomit; G93.41 Metabolic encephalopathy; K92.0 Hematemesis; T82.898A Other specified complication of vascular prosthetic devices, implants and grafts, initial encounter; D62 Acute posthemorrhagic anemia; K76.6 Portal hypertension; D68.9 Coagulation defect, unspecified; Z99.11 Dependence on respirator [ventilator] status; I85.10 Secondary esophageal varices without bleeding; K70.10 Alcoholic hepatitis without ascites; F10.10 Alcohol abuse, uncomplicated; Z68.23 Body mass index [BMI] 23.0-23.9, adult; F12.90 Cannabis use, unspecified, uncomplicated; I86.4 Gastric varices; K31.89 Other diseases of stomach and duodenum; K70.40 Alcoholic hepatic failure without coma; R56.9 Unspecified convulsions; Y83.8 Other surgical procedures as the cause of abnormal reaction of the patient, or of later complication, without mention of misadventure at the time of the procedure; Z51.5 Encounter for palliative care; Z79.1 Long term (current) use of non-steroidal anti-inflammatories (NSAID); Z87.19 Personal history of other diseases of the digestive system; Z23 Encounter for immunization; Z66 Do not resuscitate
CPT/HCPCS: 31500; 36415; 36430; 36569; 36600; 37183; 51702; 71045; 71046; 75885; 80048; 80053; 81001; 82140; 82248; 82330; 82550; 82803; 82962; 83010; 83615; 83690; 83735; 84100; 84132; 84478; 85014; 85025; 85027; 85610; 85730; 86850; 86900; 86923; 87040; 87070; 87081; 87205; 90686; 90732; 92950; 93005; 93922; 93975; 93976; 94002; 94003; 96361; 96365; 96366; 96367; 96372; 96375; 99156; 99157; 99292; C1725; J0171; J0295; J0696; J2250; J2354; J2405; J2704; J3010; J3411; J3430; J3475; J3490; J7042; J7070; Q9966; C1751; C1769; C1874; C1894; C9113; J0330; J2060; J2310; J2370; J7030; J7040; J7050; P9016; P9017; P9035